=== PATIENT | male | born 1960 | race African-American/Black ===

== ENCOUNTER 2017-03-26 12:39 | Emergency (ER) | payer OTHER ==
[~2017-03-26] VITALS: Ht 177.8 cm; Wt 113.6 kg
[~2017-03-26 12:39] MED LIST: ACET-66 PO; CLON1 PO; FERR-89 PO; PANT40TA25 PO
[2017-03-26] MEDS ORDERED: AMLO-511 PO (12:58)
[2017-03-26] MEDS ORDERED: METO50 PO (12:58)
[2017-03-26] MEDS ORDERED: KETOROLAC TROMETHAMINE 60 MG/2 ML VIAL IM ONE (14:45)
[2017-03-26 15:40] VITALS: BP 130/68
== END 2017-03-26 16:39 | disposition home or self-care (01) ==
LOC: EMS 12:50
DX: R10.31 Right lower quadrant pain (principal); I10 Essential (primary) hypertension; F11.20 Opioid dependence, uncomplicated; Z86.718 Personal history of other venous thrombosis and embolism; Z90.49 Acquired absence of other specified parts of digestive tract
CPT/HCPCS: 93971; 96372; 99284; J1885

== ENCOUNTER 2019-12-03 21:17 | Emergency (ER) | payer OTHER ==
[~2019-12-03] VITALS: Ht 177.8 cm; Wt 102.0 kg
[~2019-12-03 21:17] MED LIST changes: +AMLO5TAB9 PO; -CLON1 PO; +CLON1TAB13 PO; +METO50 PO; -PANT40TA25 PO
[2019-12-03] MEDS ORDERED: ONDANSETRON HCL 4 MG TABLET PO ONE (22:45)
[2019-12-03 23:12] VITALS: BP 135/89
== END 2019-12-03 23:15 | disposition home or self-care (01) ==
LOC: EMS 21:17
DX: T51.2X1A Toxic effect of 2-Propanol, accidental (unintentional), initial encounter (principal); I10 Essential (primary) hypertension; Z90.89 Acquired absence of other organs; Y92.89 Other specified places as the place of occurrence of the external cause

== ENCOUNTER 2021-10-24 14:33 | Inpatient (IN) | payer OTHER ==
[~2021-10-24] VITALS: Ht 177.8 cm; Wt 126.4 kg
[~2021-10-24 14:33] MED LIST changes: +AMLO-257 PO; -AMLO5TAB9 PO; +CLON-595 PO; -CLON1TAB13 PO
[2021-10-24] MEDS ORDERED: SODIUM CHLORIDE 0.9% 1,000 ML IV ONE ×2 (15:00→17:30)
[2021-10-24 15:10] LABS: BASOPHILS % (AUTO) 0.5 % (0.0-2.0); HEMOGLOBIN 8.3 g/dL (13.5-17.5); LYMPHOCYTES # (AUTO) 1.4 K/uL (1.0-4.8); LYMPHOCYTES % (AUTO) 23.9 % (22.0-44.0); MEAN CORPUSCULAR HEMOGLOBIN 18.1 pg (26.0-34.0); MEAN CORPUSCULAR HGB CONC 29.8 G/dL (31.0-37.0); MEAN CORPUSCULAR VOLUME 61 fL (80-100); MONOCYTES # (AUTO) 0.4 K/uL (0.1-1.0); MONOCYTES % (AUTO) 7.4 % (2.0-9.0); NEUTROPHILS % (AUTO) 67.2 % (40.0-70.0); PLATELET COUNT (AUTO) 310 K/uL (150-450); RED BLOOD CELL COUNT(AUTO) 4.61 MIL/uL (4.50-5.90)
[2021-10-24 15:26] LABS: ANION GAP 14 mmol/L (8-16); CALCIUM, TOTAL 9.5 mg/dL (8.8-10.5); CARBON DIOXIDE 22 mmol/L (22-29); CHLORIDE 104 mmol/L (98-107); CREATININE 2.55 mg/dL (0.60-1.30); GLOMERULAR FILTR. RATE CALC 26 mL/min (>60); GLUCOSE,RANDOM 172 mg/dL (70-110); POTASSIUM 3.9 mmol/L (3.5-5.1); SODIUM SERUM 140 mmol/L (136-145); UREA NITROGEN, BLOOD 28 mg/dL (7-18)
[2021-10-24 15:31] LABS: ALANINE AMINOTRANSFERASE 21 U/L (12-78); ALBUMIN 3.9 g/dL (3.4-5.0); ALKALINE PHOSPHATASE 50 U/L (46-116); ASPARTATE AMINOTRANSFERASE 17 U/L (15-37); BILIRUBIN,TOTAL 0.3 mg/dL (0.1-1.0); LACTIC ACID 1.2 mmol/L (0.4-2.0); LIPASE 183 U/L (73-393); TOTAL PROTEIN, SERUM 7.4 g/dL (6.4-8.2)
[2021-10-24] MEDS ORDERED: APIX5TAB PO (15:32)
[2021-10-24] MEDS ORDERED: OMEP10 PO (15:32)
[2021-10-24] MEDS ORDERED: HYDR50CA7 PO (15:32)
[2021-10-24] MEDS ORDERED: TRAM50TA2 PO (15:32)
[2021-10-24] MEDS ORDERED: ATOR10TA84 PO (15:32)
[2021-10-24] MEDS ORDERED: LISI-892 PO (15:32)
[2021-10-24 15:49] LABS: PLATELET MORPHOLOGY COMMENT NORMAL
[2021-10-24 16:11] LABS: COVID AG,FIA SOURCE NASAL SWAB
[2021-10-24] MEDS ORDERED: GABA-1181 PO (17:21)
[2021-10-24] MEDS ORDERED: DEXTROSE 50%-WATER 25 GM/50 ML SYRINGE IVP PRN (17:30)
[2021-10-24] MEDS ORDERED: GABAPENTIN 300 MG CAPSULE PO ONE (17:30)
[2021-10-24] MEDS ORDERED: ACETAMINOPHEN 325 MG TABLET PO PRN (17:30)
[2021-10-24] MEDS ORDERED: INSULIN LISPRO 100 UNITS/ML SQ PRN (17:30)
[2021-10-24] MEDS ORDERED: TraMADol HCL 50 MG TABLET PO ONE (17:30)
[2021-10-24 20:37] VITALS: BP 121/69
[2021-10-24] MEDS: ClonazePAM 1 MG TABLET PO SCH (21:41)
[2021-10-24] MEDS: DOCUSATE SODIUM 100 MG CAPSULE PO SCH (21:41)
[2021-10-24] MEDS: APIXABAN 2.5 MG TABLET PO SCH (22:24)
[2021-10-24 23:41] LABS: GLUCOMETER DEV NAME(LOC) 4E.2; GLUCOSE,POINT OF CARE 113 MG/DL (70-110)
[2021-10-25 00:05] VITALS: BP 113/70
[2021-10-25 05:38] VITALS: BP 109/72
[2021-10-25 05:45] VITALS: BP 135/84
[2021-10-25] MEDS: TraMADol HCL 50 MG TABLET PO PRN ×2 (05:45→14:46)
[2021-10-25 06:40] LABS: CREATININE 1.68 mg/dL (0.60-1.30); POTASSIUM 4.6 mmol/L (3.5-5.1)
[2021-10-25 06:46] LABS: GLUCOMETER DEV NAME(LOC) 6N.2; GLUCOSE,POINT OF CARE 95 MG/DL (70-110)
[2021-10-25 07:58] VITALS: BP 115/85
[2021-10-25] MEDS: FERROUS SULFATE 325 MG EC TABLET PO SCH ×2 (08:00→16:44)
[2021-10-25] MEDS: ClonazePAM 1 MG TABLET PO SCH ×2 (08:58→16:41)
[2021-10-25] MEDS: APIXABAN 2.5 MG TABLET PO SCH (08:59)
[2021-10-25] MEDS ORDERED: SODIUM CHLORIDE 0.9% 500 ML IV ONE (08:59)
[2021-10-25] MEDS: DOCUSATE SODIUM 100 MG CAPSULE PO SCH (09:00)
[2021-10-25] MEDS ORDERED: ClonazePAM 1 MG TABLET PO SCH (09:00)
[2021-10-25] MEDS ORDERED: VITAMIN B COMP/VIT C/FOLIC ACID CAPSULE PO SCH (09:00)
[2021-10-25] MEDS ORDERED: FAMOTIDINE 20 MG TABLET PO SCH (09:00)
[2021-10-25 15:36] VITALS: BP 125/86
[2021-10-25 17:46] LABS: GLUCOMETER DEV NAME(LOC) 4E.2; GLUCOSE,POINT OF CARE 93 MG/DL (70-110)
[2021-10-25 19:30] LABS: APPEARANCE,URINE CLEAR (CLEAR); BILIRUBIN,URINE NEGATIVE (NEGATIVE); GLUCOSE, URINE (UA) NEGATIVE (NEGATIVE); KETONES,URINE NEGATIVE (NEGATIVE); LEUKOCYTE ESTERASE ,URINE NEGATIVE (NEGATIVE); NITRATE,URINE NEGATIVE (NEGATIVE); OCCULT BLOOD,URINE NEGATIVE (NEGATIVE); PROTEIN,URINE TRACE mg/dL (NEGATIVE); SPECIFIC GRAVITIY, URINE 1.023 (1.003-1.030); UROBILINOGEN,URINE <=1.0 mg/dL (<=1.0)
[2021-10-25 19:39] LABS: BACTERIA,URINE Moderate /HPF (None Seen); RBC,URINE 0-2 /HPF (0-2); WBC,URINE 0-2 /HPF (0-5)
[2021-10-25 22:11] LABS: GLUCOMETER DEV NAME(LOC) 6N.1; GLUCOSE,POINT OF CARE 105 MG/DL (70-110)
[2021-10-30 12:42] LABS: PATHOLOGY REVIEW, DIFF YES
== END 2021-10-25 20:07 | disposition home or self-care (01) | DRG 469 ==
LOC: EMS 14:42 → 6S 18:35
PROVIDERS: ADMIT Internal Medicine; ATTEND Internal Medicine
DX: N17.9 Acute kidney failure, unspecified (principal); E11.22 Type 2 diabetes mellitus with diabetic chronic kidney disease; I95.9 Hypotension, unspecified; D63.8 Anemia in other chronic diseases classified elsewhere; I12.9 Hypertensive chronic kidney disease with stage 1 through stage 4 chronic kidney disease, or unspecified chronic kidney disease; Z20.822 Contact with and (suspected) exposure to COVID-19; N18.9 Chronic kidney disease, unspecified; E66.01 Morbid (severe) obesity due to excess calories; Z93.3 Colostomy status; Z86.718 Personal history of other venous thrombosis and embolism; Z68.41 Body mass index [BMI] 40.0-44.9, adult; Z90.49 Acquired absence of other specified parts of digestive tract
CPT/HCPCS: 71045; 80048; 80053; 81001; 82962; 83605; 83690; 84484; 85025; 87086; 93005; 99285; G0378; G0480; J7030; J7040; 36415-L1; 36415-TC

== ENCOUNTER 2022-10-14 08:11 | Emergency (ER) | payer OTHER ==
[~2022-10-14] VITALS: Ht 175.3 cm; Wt 90.9 kg
[~2022-10-14 08:11] MED LIST changes: -AMLO-257 PO; +APIX5TAB PO; +ATOR10TA PO; -FERR-89 PO; +GABA-1181 PO; +HYDR50CA7 PO; +LISI-892 PO; -METO50 PO; +OMEP10 PO; +TRAM50TA2 PO
[2022-10-14 08:17] VITALS: BP 101/71
== END 2022-10-14 10:59 | disposition home or self-care (01) ==
LOC: EMS 08:11
DX: K94.23 Gastrostomy malfunction (principal); E11.9 Type 2 diabetes mellitus without complications; I10 Essential (primary) hypertension; Z90.49 Acquired absence of other specified parts of digestive tract
CPT/HCPCS: 99281; Z7502